=== PATIENT | male | born 1960 | race Caucasian/White ===

== ENCOUNTER → 2019-09-12 | Outpatient (CLI) | payer OTHER ==
--- NOTE | 2019-09-12 15:19 | Diagnostic Imaging Report ---
PROCEDURE: CT abdomen and pelvis without contrast. TECHNIQUE: Multiple contiguous axial images were obtained through the abdomen and pelvis without the use of intravenous contrast. Auto Exposure Controls were utilized during the CT exam to meet ALARA standards for radiation dose reduction. INDICATION: IVC filter placement. COMPARISON: No prior studies are available for comparison. FINDINGS: The lung bases demonstrate some linear atelectasis or scarring in the left lower lobe. The liver demonstrates generalized low density consistent with hepatic steatosis. No discrete liver mass is detected. There is a stone within the gallbladder. No biliary ductal dilatation is seen. The pancreas and spleen are unremarkable. No adrenal mass is identified. No definite renal calculi are detected. Aorta is non-aneurysmal. There is a filter in the inferior vena cava below the level of the renal vasculature. Filter appears to be appropriately located. The small and large bowel loops are normal caliber. There is diverticulosis of the sigmoid but no evidence of acute diverticulitis. The bladder is decompressed. No free fluid or fluid collection is seen. There are postsurgical changes with hardware in the pelvis from prior fractures. IMPRESSION: 1. Hepatic steatosis. 2. Cholelithiasis. 3. Uncomplicated diverticulosis. 4. Appropriately located IVC filter. Dictated by: Dictated on workstation # [id number]
== END ==
LOC: RAD FS 12:33
DX: K76.0 Fatty (change of) liver, not elsewhere classified (principal); K80.20 Calculus of gallbladder without cholecystitis without obstruction; K57.30 Diverticulosis of large intestine without perforation or abscess without bleeding; Z95.828 Presence of other vascular implants and grafts
CPT/HCPCS: 74176